=== PATIENT | female | born 1940 | race Caucasian/White ===

== ENCOUNTER 2017-08-10 10:05 | Inpatient (IN) | payer OTHER ==
[~2017-08-10] VITALS: Ht 162.6 cm; Wt 62.6 kg
[~2017-08-10 10:05] MED LIST: ADVAIR 250/501 DISK IH; ASPIRIN81 M2 PO; CELEBREX200 MG PO; COMBIVENT RESPIM4 GM IH; GABAPENTIN100 MG PO; HYDROCODON-ACE1 EAC7 PO; LIBRIUM10 MG PO; LOVENOX40 MG/0.4 SC; PERCOCET 5/31 TABLET PO; PROTONIX40 MG PO; SENNA-TIME S T1 EACH PO; TRAMADOL HCL50 MG PO
[2017-08-10 10:45] LABS: EOSINOPHIL (%) 0.5 % (0-5); EOSINOPHIL COUNT 0.1 K/uL (0-0.3); HEMATOCRIT 35.6 % (36.0-46.0); IMMATURE GRANULOCYTE (%) 0.5 % (0.0-0.7); IMMATURE GRANULOCYTE COUNT 0.1 K/uL; LYMPHOCYTE COUNT 0.9 K/uL (1.0-2.8); MCH 28.7 PG (29.0-34.0); MCHC 31.7 G/DL (30.0-36.0); MCV 90.4 FL (83-99); MONOCYTE (%) 7.1 % (3-12); MONOCYTE COUNT 0.8 K/uL (0-0.8); NEUTROPHIL (%) 83.6 % (45-76); PLATELET COUNT 300 K/uL (156-360); RBC DIS.WIDTH-CV 14.8 % (11.8-14.6); RBC DIS.WIDTH-SD 49.1 % (39-53); RED BLOOD COUNT 3.94 M/uL (3.80-5.20); WHITE BLOOD COUNT 10.8 K/uL (4.1-10.2)
[2017-08-10 10:50] LABS: INTER. NORMALIZED RATIO 1.1
[2017-08-10 10:56] LABS: CHLORIDE 99 mEq/L (99-109); POTASSIUM 4.4 mEq/L (3.7-5.4); SODIUM 140 mEq/L (136-147)
[2017-08-10 10:58] LABS: GLUCOSE 113 mg/dL (70-99)
[2017-08-10 11:00] LABS: ANION GAP 11 MEQ/L (2-14); TOTAL BILIRUBIN 1.2 mg/dL (0.0-1.0)
[2017-08-10 11:02] LABS: ALKALINE PHOSPHATASE 263 IU/L (3-129); GFR ESTIMATE (CALCULATED) 51 mL/min/
[2017-08-10 11:03] LABS: UREA NITROGEN (BUN) 45 mg/dL (9-23)
[2017-08-10 11:05] LABS: CREATINE KINASE 129 IU/L (1-294); TOTAL CK 129 IU/L (1-294)
[2017-08-10 11:06] LABS: TROP-I INTERPRETATION NEGATIVE; TROPONIN-I 0.05 ng/mL (0.0-0.30)
[2017-08-10 11:12] LABS: CK-MB 4.3 ng/mL (0.0-4.9)
[2017-08-10 11:18] LABS: ADD MIUA? YES; BILIRUBIN NEGATIVE; BLOOD MODERATE; COLOR YELLOW ((YELLOW)); GLUCOSE (STRIP) NEGATIVE; KETONES 5; LEUKOCYTES TRACE; NITRITE POSITIVE; PROTEIN (STRIP) 100; SPECIFIC GRAVITY 1.016 (1.000-1.030); UROBILINOGEN 0.2 MG/DL (0.2-1.0)
[2017-08-10 11:38] LABS: BACTERIA 3+ /HPF; EPITHELIAL CELLS RARE /HPF; MUCUS 1+ /LPF; RED BLOOD CELLS NONE SEEN /HPF (0-5); UCUL ADDED? YES; WHITE BLOOD CELLS CLUMP FEW /HPF (0-5)
[2017-08-10] MEDS ORDERED: SYMBICORT60 INHALAT IH (15:30)
[2017-08-10] MEDS ORDERED: DUONEB 2.5-0.5 M3 ML AEROSOL (15:33)
[2017-08-10] MEDS ORDERED: GUAIFENESIN DM236 ML PO (15:34)
[2017-08-10] MEDS ORDERED: ADVIL,NUPRIN,M200 MG PO (15:36)
[2017-08-10] MEDS ORDERED: ATIVAN0.5 MG PO (15:37)
[2017-08-10] MEDS ORDERED: TYLENOL REGULA325 MG PO (15:38)
[2017-08-10 17:44] VITALS: BP 179/78
[2017-08-10 18:26] LABS: POINT-OF-CARE METER ID UU13113698
[2017-08-10 19:20] VITALS: BP 133/58
[2017-08-10 21:15] LABS: POINT-OF-CARE METER ID UU13113781
[2017-08-10 23:57] VITALS: BP 142/72
[2017-08-11 04:00] VITALS: BP 165/74
[2017-08-11 05:48] LABS: EOSINOPHIL (%) 0 % (0-5); HEMATOCRIT 34.4 % (36.0-46.0); IMMATURE GRANULOCYTE (%) 0.2 % (0.0-0.7); INSTRUMENT ABS NEUTROPHIL CT 4.8 K/uL; LYMPHOCYTE COUNT 0.4 K/uL (1.0-2.8); MCH 28.5 PG (29.0-34.0); MCHC 30.5 G/DL (30.0-36.0); MCV 93.2 FL (83-99); MEAN PLAT.VOLUME 10.4 uM^3 (9.5-12.4); MONOCYTE (%) 1.5 % (3-12); MONOCYTE COUNT 0.1 K/uL (0-0.8); NEUTROPHIL (%) 90.5 % (45-76); NEUTROPHIL COUNT 4.8 K/uL (1.8-6.4); PLATELET COUNT 234 K/uL (156-360); RBC DIS.WIDTH-CV 15.3 % (11.8-14.6); RBC DIS.WIDTH-SD 51.8 % (39-53); RED BLOOD COUNT 3.69 M/uL (3.80-5.20); WHITE BLOOD COUNT 5.3 K/uL (4.1-10.2)
[2017-08-11 06:08] LABS: ANION GAP 9 MEQ/L (2-14); CHLORIDE 100 MEQ/L (99-109); GFR ESTIMATE (CALCULATED) 46 mL/min/; GLUCOSE 134 mg/dL (70-99); SAMPLE HEMOLYSIS CHECK 0; SAMPLE ICTERIC CHECK 0; SAMPLE LIPEMIA CHECK 0; SODIUM 143 MEQ/L (136-147); UREA NITROGEN (BUN) 34 mg/dL (9-23)
[2017-08-11 08:00] VITALS: BP 142/81
[2017-08-11 08:21] LABS: POINT-OF-CARE METER ID UU13113781; POINT-OF-CARE USER ID NUTSLF44
[2017-08-11 12:08] VITALS: BP 144/86
[2017-08-11 12:14] LABS: POINT-OF-CARE METER ID UU13113781; POINT-OF-CARE USER ID NUTSLF44
[2017-08-11 16:35] VITALS: BP 151/78
[2017-08-11 16:47] LABS: POINT-OF-CARE METER ID UU14314088; POINT-OF-CARE USER ID NUTSLF44
[2017-08-11 19:32] VITALS: BP 131/60
[2017-08-11 20:48] LABS: POINT-OF-CARE METER ID UU13113781; POINT-OF-CARE USER ID ENVMNS
[2017-08-11 23:47] VITALS: BP 132/62
[2017-08-12 00:35] VITALS: BP 130/60
[2017-08-12 06:34] LABS: EOSINOPHIL (%) 0.2 % (0-5); HEMATOCRIT 30.9 % (36.0-46.0); IMMATURE GRANULOCYTE (%) 0.5 % (0.0-0.7); IMMATURE GRANULOCYTE COUNT 0.1 K/uL; INSTRUMENT ABS NEUTROPHIL CT 9.8 K/uL; LYMPHOCYTE COUNT 0.9 K/uL (1.0-2.8); MCH 28.4 PG (29.0-34.0); MCHC 30.7 G/DL (30.0-36.0); MCV 92.5 FL (83-99); MEAN PLAT.VOLUME 10.6 uM^3 (9.5-12.4); MONOCYTE (%) 8.2 % (3-12); NEUTROPHIL (%) 83.3 % (45-76); NEUTROPHIL COUNT 9.8 K/uL (1.8-6.4); PLATELET COUNT 240 K/uL (156-360); RBC DIS.WIDTH-CV 15.4 % (11.8-14.6); RBC DIS.WIDTH-SD 52.3 % (39-53); RED BLOOD COUNT 3.34 M/uL (3.80-5.20); WHITE BLOOD COUNT 11.8 K/uL (4.1-10.2)
[2017-08-12 06:55] LABS: ANION GAP 8 MEQ/L (2-14); CHLORIDE 103 MEQ/L (99-109); GFR ESTIMATE (CALCULATED) 42 mL/min/; GLUCOSE 109 mg/dL (70-99); POTASSIUM 3.3 MEQ/L (3.7-5.4); SAMPLE HEMOLYSIS CHECK 0; SAMPLE ICTERIC CHECK 0; SAMPLE LIPEMIA CHECK 0; SODIUM 143 MEQ/L (136-147); UREA NITROGEN (BUN) 40 mg/dL (9-23)
[2017-08-12 08:30] LABS: POINT-OF-CARE METER ID UU13113781
[2017-08-12 09:46] VITALS: BP 128/68
[2017-08-12] MEDS ORDERED: LOPRESSOR50 MG PO (11:00)
[2017-08-12] MEDS ORDERED: AMLODIPINE BESY10 MG PO (11:01)
[2017-08-12] MEDS ORDERED: BACTROBAN OINTM22 GM TP (11:02)
[2017-08-12] MEDS ORDERED: PREDNISONE20 MG PO (11:03)
[2017-08-12] MEDS ORDERED: KEFLEX500 MG PO (11:04)
[2017-08-12 11:52] LABS: POINT-OF-CARE METER ID UU13113781
[2017-08-12 11:57] VITALS: BP 149/69
== END 2017-08-12 14:49 | disposition hospice, home (50) | DRG 191 ==
LOC: EME 10:05 → 4EAST 12:47 → EDOF 12:47 → ENRESERV 13:23 → CANRESERV 13:23 → ENRESERV 13:36 → 4EAST 17:24
PROVIDERS: Emergency Medicine; Internal Medicine; Physician Assistant
DX: J44.1 Chronic obstructive pulmonary disease with (acute) exacerbation (principal); I16.0 Hypertensive urgency; I48.0 Paroxysmal atrial fibrillation; N39.0 Urinary tract infection, site not specified; C22.9 Malignant neoplasm of liver, not specified as primary or secondary; E11.9 Type 2 diabetes mellitus without complications; S90.821A Blister (nonthermal), right foot, initial encounter; S90.822A Blister (nonthermal), left foot, initial encounter; K57.30 Diverticulosis of large intestine without perforation or abscess without bleeding; E86.0 Dehydration; R09.02 Hypoxemia; E78.5 Hyperlipidemia, unspecified; F17.210 Nicotine dependence, cigarettes, uncomplicated; I25.10 Atherosclerotic heart disease of native coronary artery without angina pectoris; Z51.5 Encounter for palliative care; G31.9 Degenerative disease of nervous system, unspecified; I10 Essential (primary) hypertension; Z66 Do not resuscitate; Z79.899 Other long term (current) drug therapy; M21.961 Unspecified acquired deformity of right lower leg; W19.XXXA Unspecified fall, initial encounter; Y92.009 Unspecified place in unspecified non-institutional (private) residence as the place of occurrence of the external cause; Z91.81 History of falling; Z99.81 Dependence on supplemental oxygen; Z85.05 Personal history of malignant neoplasm of liver; Z90.710 Acquired absence of both cervix and uterus; Z82.49 Family history of ischemic heart disease and other diseases of the circulatory system; Z96.642 Presence of left artificial hip joint
CPT/HCPCS: 70450; 71010; 73630; 74177; 80048; 80053; 81003; 82140; 82550; 82553; 82948; 83605; 83735; 83880; 84484; 85025; 85027; 85610; 85730; 87040; 87077; 87086; 87186; 93005; 94640; 94640 76; 94799; 97530 GO; 99202; 99281; 99285; G8988 GO CH; J0690; J0692; J0696; J1644; J2920; J7030; J7512